=== PATIENT | female | born 1980 | race Caucasian/White ===

== ENCOUNTER 2018-07-05 12:39 | Emergency (ER) | payer OTHER ==
--- NOTE | 2018-07-05 12:52 | EDPHY ---
H & P Stated Complaint: Skiing--hit from behind -L calf pain---R hip pain Time Seen by Provider: 07/05/18 12:52 - Personal History LMP (Females 10-55): 8-14 Days Ago Current Tetanus/Diphtheria Vaccine: Unsure Current Tetanus Diphtheria and Acellular Pertussis (TDAP): Unsure - Medical/Surgical History Hx Asthma: No Hx Chronic Respiratory Disease: No Hx Diabetes: No Hx Cardiac Disease: No Hx Renal Disease: No Hx Cirrhosis: No Hx Alcoholism: Yes Hx HIV/AIDS: No Hx Splenectomy or Spleen Trauma: No Other PMH: alcoholism - Social History Smoking Status: Never smoked Constitutional: Initial Vital Signs Temperature (C) 36.7 C 07/05/18 12:45 Heart Rate 88 07/05/18 12:45 Respiratory Rate 16 07/05/18 12:45 Blood Pressure 119/83 H 07/05/18 12:45 O2 Sat (%) 96 07/05/18 12:45 O2 Delivery Mode Room Air Medical Decision Making - Diagnostics Imaging: Discussed imaging studies w/ yard caller Radiologist, I viewed and interpreted images myself ED Course/Re-evaluation: CHIEF COMPLAINT: Left calf and right hip pain HISTORY OF PRESENT ILLNESS: The patient is a 37 y/o female complaining of left calf and right hip pain secondary to being hit while skiing today. She was skiing down a run, when another person came and hit her from behind. She is unsure if the person's ski or body hit her. She was able to ski down the run, but subsequently had significant left calf and right hip pain. She was able to walk without any difficulty on the right hip but has had some difficulty walking on the left leg. She has a familial history of DVT's and she was a former smoker. No headache, chest pain, shortness of breath, abdominal pain, urinary or bowel complaints, numbness, fevers. REVIEW OF SYSTEMS: A comprehensive 10 system review of systems is otherwise negative aside from elements mentioned in the history of present illness and medical decision making. PHYSICAL EXAM: HR, BP, O2 Sat, RR. Temp noted General Appearance: Alert, well hydrated, appropriate, and non-toxic appearing. Head: Atraumatic without scalp tenderness or obvious injury Eyes: Pupils equal, round, reactive to light and accommodation, EOMI, no trauma , no injection. Ears: Clear bilaterally, no perforation, normal landmarks Nose: Atraumatic, no rhinorrhea, clear. Throat: There is no erythema or exudates, no lesions, normal tonsils, mucus membranes moist. Neck: Supple, 2+ carotid upstroke, nontender, no lymphadenopathy. Respiratory: No retractions, no distress, no wheezes, and no accessory muscle use. Lungs are clear to auscultation bilaterally. Cardiovascular: Regular rate and rhythm, no murmurs, rubs, or gallops. Bilateral carotid, radial, dorsalis pedis, and posterior tibial pulses intact. Good capillary refill all extremities. Gastrointestinal: Abdomen is soft, nontender, non-distended, no masses, no rebound, no guarding, no peritoneal signs. Musculoskeletal: Mild horizontal ecchymosis of lower lateral right hip, left medial head of gastrocnemius ecchymosis with swelling and tenderness to palpation. Lost some ability to plantar flex on the left and significant pain on active/passive dorsiflexion. Neurological: Alert, appropriate, and interactive. The patient has normal DTRs and non-focal cranial nerves, motor, sensory, and cerebellar exam. Skin: No rashes, good turgor, no nodules on palpation. Past medical history: Alcoholism Past surgical history: Denies Family history: Denies Social history: at bedside, lives in [place], former smoker DIAGNOSTICS/PROCEDURES/CRITICAL CARE TIME: Left Calf MRI: Torn left medial soleus and gastrocnemius with contusions; the Achilles is intact. DIFFERENTIAL DIAGNOSIS: The differential diagnosis for the patient's calf injury included but was not limited to fracture, ligamentous injury, contusion, muscular tear, muscular strain, muscular contusion, and meniscus injury. MEDICAL DECISION MAKING: The patient is a 37 y/o female presenting with left calf and right hip pain secondary to being hit while skiing today. On exam she has mild horizontal ecchymosis of the lower lateral right hip, She also has left medial head of gastrocnemius ecchymosis with swelling and tenderness to palpation. She has lost some ability to plantar flex on the left and significant pain on active/ passive dorsiflexion. There is no other trauma noted. She is denying pain medications at this time. Left calf MRI ordered. 1405: I spoke with Dr. Young, radiologist, regarding this patient. She has a torn left medial soleus and gastrocnemius with contusions. The Achilles is intact and normal. She will need to be placed in knee immobilizer and follow up with orthopedics.. 1410: Reassessed patient and discussed imaging findings. I have advised the patient to follow up with an orthopedic surgeon. I have also advised her to take 324mg PO Aspirin daily for DVT prophylactics as she has a familial history of blood clots. She is still declining pain medications and will take ibuprofen for the pain. Return precautions provided; patient is comfortable with this plan. - Data Points Medications Given: Discontinued Medications Ibuprofen (Motrin) 600 mg PO EDNOW ONE Stop: 07/05/18 14:06 Last Admin: 07/05/18 14:07 Dose: 600 mg Departure - Departure Disposition: Home, Routine, Self-Care Clinical Impression: soleus muscle tear Gastrocnemius muscle tear Qualifiers: Encounter type: initial encounter Laterality: left Qualified Code(s): S86.112A - Strain of other muscle(s) and tendon(s) of posterior muscle group at lower leg level, left leg, initial encounter Condition: Good Instructions: Muscle Strain (ED), Contusion in Adults (ED), Musculoskeletal Pain (ED) Additional Instructions: 1. Take a full aspirin (324mg PO) daily for DVT prophylactics. 2. Rest, ice, elevation. 3. Follow up with an orthopedic surgeon within one week. Return to the emergency department for worsening pain, swelling, numbness, weakness or other concerns. 4. Wear knee immobilizer at all times until reevaluation, but okay to shower without splint. 5. Take ibuprofen as directed for pain. Make sure to eat before you take this. Referrals: Luis Mcnair MD [Medical Doctor] - As per Instructions Report Scribed for: Ananda Russo Report Scribed by: Kaylyn Jane Date of Report: 07/05/18 Time of Report: 12:53
[2018-07-05] MEDS ORDERED: IBUPROFEN 600 MG TAB PO ONE (14:05)
[2018-07-05] MEDS ORDERED: ASPIRIN 325 MG TAB ONE (14:08)
[2018-07-05] MEDS ORDERED: ASPIRIN EC 325 MG TAB PO ONE (14:11)
[2018-07-05 14:41] VITALS: BP 132/97
== END 2018-07-05 14:39 | disposition home or self-care (01) ==
DX: S86.112A Strain of other muscle(s) and tendon(s) of posterior muscle group at lower leg level, left leg, initial encounter (principal); M25.551 Pain in right hip; W50.0XXA Accidental hit or strike by another person, initial encounter; Y93.23 Activity, snow (alpine) (downhill) skiing, snowboarding, sledding, tobogganing and snow tubing; Y92.828 Other wilderness area as the place of occurrence of the external cause; Y99.8 Other external cause status
CPT/HCPCS: L1830